=== PATIENT | female | born 1960 | race Caucasian/White ===

== ENCOUNTER 2017-08-14 07:11 | Inpatient (IN) | payer OTHER ==
[~2017-08-14] VITALS: Ht 162.6 cm; Wt 114.8 kg
[~2017-08-14 07:11] MED LIST: ADVIL,NUPRIN,M200 MG PO; BACTRIM,SEPT1 TABLET PO; BESIVANCE5 ML LEFT EYE; BREO ELLIPTA I1 EACH IH; DAILY VALUE1 EACH PO; DELTASONE20 M1 PO; DUONEB 2.5-0.5 M3 ML AEROSOL; HYDROCHLOROTHIA25 MG PO; LEVAQUIN750 MG PO; MONTELUKAST SOD10 MG PO; NOHOMEMEDS; NORVASC5 MG PO; PHENERGAN-CODE120 ML PO; PREDNISONE20 MG PO; PROAIR HFA8.5 GM IH; ROPINIROLE HCL0.5 MG PO; SINGULAIR10 MG PO; SPIRIVA1 INHALATI IH; TYLENOL EXTRA500 MG PO
[2017-08-14 07:57] LABS: HEMATOCRIT 47.9 % (36.0-46.0); HEMOGLOBIN 15.5 G/DL (11.9-15.5); MCHC 32.4 G/DL (30.0-36.0); MCV 92.8 FL (83-99); PLATELET COUNT 240 K/uL (156-360); RBC DIS.WIDTH-CV 15.2 % (11.8-14.6); RBC DIS.WIDTH-SD 52.1 % (39-53); RED BLOOD COUNT 5.16 M/uL (3.80-5.20); WHITE BLOOD COUNT 11.9 K/uL (4.1-10.2)
[2017-08-14 08:05] LABS: CHLORIDE 100 mEq/L (99-109); POTASSIUM 4.2 mEq/L (3.7-5.4); SODIUM 137 mEq/L (136-147)
[2017-08-14 08:06] LABS: GLUCOSE 109 mg/dL (70-99)
[2017-08-14 08:10] LABS: CREATININE 0.9 mg/dL (0.6-1.3); GFR ESTIMATE (CALCULATED) > 59 mL/min/
[2017-08-14 08:11] LABS: UREA NITROGEN (BUN) 18 mg/dL (9-23)
[2017-08-14 08:17] LABS: TROP-I INTERPRETATION NEGATIVE; TROPONIN-I 0.03 ng/mL (0.0-0.30)
[2017-08-14] MEDS ORDERED: LISINOPRIL-HCT1 EAC3 PO (10:52)
[2017-08-14 14:13] VITALS: BP 118/62
[2017-08-14 19:32] VITALS: BP 108/59
[2017-08-14 23:55] VITALS: BP 105/55
[2017-08-15 03:40] VITALS: BP 122/63
[2017-08-15 07:00] VITALS: BP 118/58
[2017-08-15 07:12] LABS: HEMATOCRIT 46.7 % (36.0-46.0); HEMOGLOBIN 14.5 G/DL (11.9-15.5); MCV 96.5 FL (83-99); PLATELET COUNT 207 K/uL (156-360); RBC DIS.WIDTH-CV 15.1 % (11.8-14.6); RBC DIS.WIDTH-SD 54.1 % (39-53); RED BLOOD COUNT 4.84 M/uL (3.80-5.20); WHITE BLOOD COUNT 12.2 K/uL (4.1-10.2)
[2017-08-15 07:34] LABS: CHLORIDE 103 MEQ/L (99-109); CREATININE 0.7 MG/DL (0.6-1.3); GFR ESTIMATE (CALCULATED) > 59 mL/min/; SODIUM 143 MEQ/L (136-147); UREA NITROGEN (BUN) 17 mg/dL (9-23)
[2017-08-15 07:43] LABS: GLUCOSE 179 mg/dL (70-99)
[2017-08-15 12:31] VITALS: BP 120/53
[2017-08-15 16:43] VITALS: BP 111/56
[2017-08-15 20:08] VITALS: BP 137/85
[2017-08-15 23:10] VITALS: BP 106/51
[2017-08-16 03:39] VITALS: BP 110/58
[2017-08-16 07:57] VITALS: BP 126/75
[2017-08-16 19:20] VITALS: BP 140/64
[2017-08-16 23:26] VITALS: BP 100/55
[2017-08-17 07:10] VITALS: BP 113/56
[2017-08-17 11:15] VITALS: BP 142/66
[2017-08-17] MEDS ORDERED: PREDNISONE5 MG PO (11:32)
[2017-08-17] MEDS ORDERED: LEVOFLOXACIN500 MG PO (11:32)
[2017-08-17 15:20] VITALS: BP 118/58
== END 2017-08-17 17:15 | disposition home health service (06) | DRG 190 ==
LOC: EME 07:11 → 2EAST 09:47 → EDOF 09:47 → ENRESERV 09:56 → EDOF 10:00 → ENRESERV 12:07 → 2EAST 13:50
PROVIDERS: Internal Medicine; Nurse Practitioner Family
DX: J44.1 Chronic obstructive pulmonary disease with (acute) exacerbation (principal); J96.01 Acute respiratory failure with hypoxia; J20.9 Acute bronchitis, unspecified; J44.0 Chronic obstructive pulmonary disease with (acute) lower respiratory infection; E66.9 Obesity, unspecified; Z68.41 Body mass index [BMI] 40.0-44.9, adult; I10 Essential (primary) hypertension; G47.33 Obstructive sleep apnea (adult) (pediatric); M19.90 Unspecified osteoarthritis, unspecified site; G25.81 Restless legs syndrome; Z87.891 Personal history of nicotine dependence; Z80.1 Family history of malignant neoplasm of trachea, bronchus and lung
CPT/HCPCS: 71046; 80048; 84484; 85027; 87502; 93005; 93306; 94640; 94640 76; 94667; 94799; 99202; 99281; 99285; J1650; J2930; J7030